=== PATIENT | male | born 1990 | race Caucasian/White ===

== ENCOUNTER 2016-07-10 17:11 | Emergency (ER) | payer OTHER ==
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
[2016-07-10 21:26] VITALS: BP 128/79
== END 2016-07-10 21:27 | disposition home or self-care (01) ==
LOC: ED 17:11
DX: R51 Headache (principal); F17.200 Nicotine dependence, unspecified, uncomplicated; V89.2XXA Person injured in unspecified motor-vehicle accident, traffic, initial encounter; Y93.89 Activity, other specified; Y99.9 Unspecified external cause status; Y92.410 Unspecified street and highway as the place of occurrence of the external cause
CPT/HCPCS: 70450; 72125